=== PATIENT | female | born 1990 | race Caucasian/White ===

== ENCOUNTER 2016-06-10 05:50 | Inpatient (IN) | payer MEDICAID ==
[2016-06-10 06:12] VITALS: BMI 37.7
[2016-06-10] MEDS ORDERED: cefOXitin IV 2 gm in Dextrose 50 ML IVPB ONE ×2 (06:23→07:05)
--- NOTE | 2016-06-10 06:51 | OBADHP ---
Datetime: 06/10/2016 06:47 Admit Comment, IP Provider: chief complaint-scheduled induction of labor HPI 26 y/o at 39 wga here for scheduled section.Patient denies nausea, vomiting, hea dache, chest pain, shortness of breath, numbness or tingling in hands and feet course complicated by gestational diabetes-diet controlled PMH denies PSH csection OBGYN HX ; Csection for nonreasusirng tracing Social hx denies tobacco,alcohol or illicit drug use Exam see exam section A/P 26 y/o at 39 wga here for scheduled repeat csection_ -admit -see orders Pelvic Type - PN: Adequate Extremities - PN: Normal Abdomen - PN: Normal Back - PN: Normal Lungs - PN: Normal Heart - PN: Normal Neurologic - PN: Normal HEENT - PN: Normal General - PN: Normal Contraction Comments Provider: occ Gestation - Est Wks by US: 39.0 IP Hx Assessment: The History has been Reviewed and is Current Vital Signs Provider: Reviewed; Within Normal Limits IP Chief Complaint: Scheduled Section FHR Category Provider Fetus A: Category I Genitourinary Exam: Normal DTRs - PN: Normal EGA AdmitDate IP: 39.0 IP Adm Impression: Term, intrauterine IP Admit Plan: Admit to unit; Initiate Section protocol
[2016-06-10] MEDS ORDERED: Oxytocin 20 units in LR 2,000 ML IV ONE (07:04)
[2016-06-10] MEDS ORDERED: Sodium Citrate/Citric Acid 15 ml Sol ONE (07:04)
[2016-06-10 07:14] LABS: BASO # 0.1 K/uL (0.0-0.2); BASO % 0.7 % (0.0-2.0); EOS # 0.5 K/uL (0.0-0.7); HEMATOCRIT 35.9 % (34.0-47.0); LYMPH % 27.7 % (20.0-40.0); MEAN CELL VOLUME 92.7 fL (81.0-99.0); MEAN CORPUSCULAR HEMOGLOBIN 31.3 pg (27.0-31.0); MEAN CORPUSCULAR HGB CONC 33.8 g/dL (33.0-37.0); MEAN PLATELET VOLUME 8.7 fL (7.2-11.7); MONO # 0.8 K/uL (0.0-0.8); MONO % 7.2 % (0.0-10.0); NRBC % 0.1 % (0.0-2.0); RED CELL DISTRIBUTION WIDTH 12.5 % (11.5-14.5); WHITE BLOOD COUNT 10.7 K/uL (4.8-10.8)
[2016-06-10] MEDS ORDERED: Lactated Ringer's 1,000 ML IV SCH (07:15)
[2016-06-10] MEDS: Sodium Citrate/Citric Acid 15 ml Sol PO ONE (07:23)
[2016-06-10 07:28] LABS: CHLORIDE 100 mmol/L (98-107); POTASSIUM 4.3 mmol/L (3.6-5.2); RBC URINE 2 /hpf (0-3); SODIUM 136 mmol/L (132-148); URINE BACTERIA RARE (<OCC); URINE BILIRUBIN NEGATIVE (NEGATIVE); URINE BLOOD NEGATIVE (NEGATIVE); URINE COLOR Yellow (YELLOW); URINE GLUCOSE (UA) NORMAL (Normal); URINE KETONE NEGATIVE (NEGATIVE); URINE LEUKOCYTE ESTERASE 3+ Leu/uL (Negative); URINE PROTEIN NEGATIVE (NEGATIVE); URINE UROBILINOGEN NORMAL mg/dL (0.2-1.0); WBC URINE 7 /hpf (0-5)
[2016-06-10 07:30] LABS: ALB/GLOB RATIO 1.1 (1.0-2.1); AST/SGOT 29 U/L (14-36); BILIRUBIN,TOTAL 0.2 mg/dL (0.2-1.3); CARBON DIOXIDE 22 mmol/L (22-30); GFR AFRICAN-AMERICAN > 60; TOTAL PROTEIN 6.8 g/dL (6.3-8.3)
[2016-06-10 07:31] LABS: ALKALINE PHOSPHATASE 185 U/L (38-126); ALT/SGPT 29 U/L (9-52); BLOOD UREA NITROGEN 12 mg/dL (7-17); GLUCOSE,RANDOM 71 mg/dL (65-105)
[2016-06-10] MEDS ORDERED: Morphine 1 mg/ml preservative-free Inj(Duramorph) ONE ×2 (07:50)
[2016-06-10] MEDS ORDERED: DiphenhydrAMINE 50 mg/ml Inj IVP PRN (09:14)
--- NOTE | 2016-06-10 10:44 | OBPN ---
Datetime: 06/10/2016 07:36 IP Progress Note Comment: Patient received in LDR#1: (+) AFM, denies LOF, VB, ctx. FOB present H_P reviewed. consent obtained after discussion of possible risks, complications including but not limited to infection, hemorrhage, repair of any damage to internal organs, possible hystere ctomy. Consents signed, dated, witnessed and placed in chart. Assessment: 26 yo P1. 39 weeks, previous C/S, A1 GDM - well controlled - per patient's report of f asting 80s mg/dL and 2-hour post prandials <120s mg/dL. Category 1. Patient last ate 2200 hours. Clin ically stable. Plan: 1) cardiology clinical consultant to O.R. Datetime: 06/10/2016 06:47 Contraction Comments Provider: occ Gestation - Est Wks by US: 39.0 Vital Signs Provider: Reviewed; Within Normal Limits FHR Category Provider Fetus A: Category I
--- NOTE | 2016-06-10 10:57 | PCM.SURG1 ---
Surgeon's Initial Post Op Note - Surgeon's Notes Surgeon: Vesna Segura MD Ophthalmic Photographer: Darrick Branch MD. 2nd Ophthalmic Photographer: Tereza Locke MS-4 Type of Anesthesia: Spinal Anesthesia Administered By: Daniel Corrales MD Pre-Operative Diagnosis: 39 weeks gestation. Previous section. Gestational diabetes mellitus, diet controlled Operative Findings: Live female, LOP, 6lb 11oz; Apgars 9/9. Normal uterus, left ovary adherent posteriorly to uterus, grossly normal. Normal right ovary; and normal fallopian tubes bilaterally. Post-Operative Diagnosis: Same Operation Performed: Repeat transverse lower uterine segment section Specimen/Specimens Removed: none Estimated Blood Loss: EBL {In ML}: 800 (U.O. 700 mL; IVFs 2000 mL LR) Blood Products Given: N/A Drains Used: No Drains Date of Surgery/Procedure: 06/10/16 Time of Surgery/Procedure: 09:25
--- NOTE | 2016-06-10 11:59 | OP ---
PROCEDURE DATE: 06/10/2016 SURGEON: Vesna Segura MD. FRUIT LOADER MACHINE OPERATOR: Darrick Branch MD. SECOND FRUIT LOADER MACHINE OPERATOR: Tereza Locke MS-4. ANESTHESIOLOGIST: Daniel Corrales MD. ANESTHESIA TYPE: Spinal. PREOPERATIVE DIAGNOSES: A 39 weeks' gestation; previous Caesarean section; gestational diabetes mellitus, diet controlled. POSTOPERATIVE DIAGNOSES: A 39 weeks' gestation; previous Caesarean section; gestational diabetes mellitus, diet controlled. OPERATIVE FINDINGS: Live female from the left occiput posterior position , weight 6 pounds 11 ounces, Apgars 9 and 9 at 1 and 5 minutes, respectively. Normal uterus, normal right ovary and normal fallopian tubes bilaterally. The left ovary was adherent posteriorly to the uterus. OPERATION PERFORMED: Repeat transverse lower uterine segment Caesarean section. SPECIMENS: None. ESTIMATED BLOOD LOSS: 800 mL. URINARY OUTPUT: 700 mL of clear urine. INTRAVENOUS FLUIDS: 2000 mL of lactated Ringers. COMPLICATIONS: None. PROCEDURE: The patient was taken to the operating room after having obtained informed consent for the anticipated procedure. This included a discussion of possible risks and complications including but not limited to infection, requiring antibiotics; hemorrhage, requiring blood transfusion; repair of any damage to internal organs; possible Caesarean hysterectomy. Consents were signed, dated, witnessed, and placed. Patient received mefoxin 2 grams intravenously; and an indwelling Tony was inserted using sterile technique. Patient was escorted to the operating room. She was placed on the operating room table in a sitting position where spinal anesthesia was administered without incident. The patient was immediately repositioned into a supine position; heart tones were auscultated at 152 beats per minute. The abdomen was subsequently prepped and she was draped in the usual sterile fashion. After assuring an adequate level of anesthesia, using the first scalpel, an incision was made through the previous Pfannenstiel scar. The incision was carried down through the subcutaneous tissue using the Bovie electrocautery. The fascia was identified. It was nicked in the midline and the incision was extended bilaterally using the Bovie electrocautery. The rectus muscle was dissected off the overlying fascia. Subsequently, the rectus muscle was in the midline using the scalpel. The abdominal cavity was entered via sharp dissection. The vesicouterine reflection was identified and the bladder flap was created. A transverse incision was then made on the lower uterine segment using a second scalpel. Amniotomy was performed and a copious amount of clear fluid was obtained. The infant was delivered in an atraumatic manner, findings as above. Once on the operative field, the ' s mouth and nose were bulb suctioned as the umbilical cord was doubly clamped and cut. The infant was handed off the operative field to the screener and blender in attendance. The placenta was then delivered manually. It was grossly intact with 3 vessels present in the cord. The uterus was exteriorized for closure. This was done in 2 layers using 1-0 Vicryl. The first layer was a running interlocking fashion and the second layer was a horizontal imbricating fashion. Using 0 Biosyn suture, several ruikhu-me-azqih stitches were placed to assure adequate hemostasis. Examination of the pelvic viscera was noted with the findings as above. The bladder flap was then reapproximated using 2-0 chromic in a running fashion. Surgicel was placed along the uterine incision prior to reapproximating the bladder flap. Once the bladder flap was reapproximated, copious irrigation was performed. The uterus was then returned to the abdominal cavity and the paracolic gutters were cleared of all debris. Adequate hemostasis was assured. The parietal peritoneum was then reapproximated using 2-0 chromic in a running fashion and the rectus muscle was reapproximated in midline using 2-0 chromic in a running fashion. The fascia was reapproximated using 1-0 Vicryl in a running fashion. The subcutaneous tissue was reapproximated using plain catgut in a running fashion. The skin was reapproximated using 4-0 Biosyn on a curved needle in a subcuticular stitch. Steri-Strips were applied and a pressure dressing was applied. The patient was then repositioned to a frogleg position. Bimanual massage was performed and the uterus was evacuated of all clots. Uterus contracted and firm at the level of the umbilicus. The patient tolerated the procedure well. She was transferred back to [facility] in stable condition. Baby was also with her, also in stable condition. Dr. Darrick Branch was present throughout the entire procedure from beginning to end. His surgical expertise was necessary for: 1) adequate visualization of the entire operative field; 2) applying appropriate fundal pressure for the safe and effective delivery of the infant; 3) assuring hemostasis throughout the entire procedure. Vesna Segura MD cc: [id number] TT: 06/10/2016 11:59:03 mil KARIMI
[2016-06-10] MEDS ORDERED: Oxycodone/Acetaminophen 5/325 mg Tab PO PRN (19:17)
[2016-06-10] MEDS: Oxycodone/Acetaminophen 5/325 mg Tab PO PRN (20:59)
[2016-06-10] MEDS: Simethicone 80 mg Chewtab PO SCH (21:28)
[2016-06-11] MEDS: Oxycodone/Acetaminophen 5/325 mg Tab PO PRN ×5 (03:30→22:45)
[2016-06-11 06:00] LABS: BASO # 0.1 K/uL (0.0-0.2); BASO % 0.4 % (0.0-2.0); EOS # 0.2 K/uL (0.0-0.7); EOS % 1.3 % (0.0-4.0); HEMATOCRIT 35.6 % (34.0-47.0); LYMPH # 2.6 K/uL (1.0-4.3); LYMPH % 16.1 % (20.0-40.0); MEAN CELL VOLUME 93.1 fL (81.0-99.0); MEAN CORPUSCULAR HEMOGLOBIN 31.7 pg (27.0-31.0); MEAN PLATELET VOLUME 8.3 fL (7.2-11.7); MONO # 0.8 K/uL (0.0-0.8); MONO % 4.8 % (0.0-10.0); RED CELL DISTRIBUTION WIDTH 12.8 % (11.5-14.5); WHITE BLOOD COUNT 16.3 K/uL (4.8-10.8)
--- NOTE | 2016-06-11 07:48 | OBPPN ---
Datetime: 06/11/2016 07:45 PP Pain Prov: Within normal limits PP Nausea Prov: Denies PP Flatus Prov: No PP Abdomen/Uterus Prov: Normal PP Lochia Prov: Normal PP Extremities Prov: Normal PP Comments Phys Exam Prov: fudus below umb ext no edema,no calf ten dressing clean and dry PP Impression Prov: Normal progression PP Plan Prov: Continue present management PP Progress Note Prov: pt was seen at bed side, pain under control,no n/v, tolerating deit,voiding,m in lochia, flatus- pod#1 s/p c/s reg deit cbc cont pain management cont post op care encourage ambulation Vital Signs Provider PP: Reviewed; Within Normal Limits
[2016-06-11] MEDS: Simethicone 80 mg Chewtab PO SCH ×4 (09:29→22:02)
[2016-06-11] MEDS: Prenatal Multivit/Folic Acid/Iron Tab PO SCH (09:30)
[2016-06-12 07:49] VITALS: O2SAT 99
--- NOTE | 2016-06-12 09:19 | OBPPN ---
Datetime: 06/12/2016 09:15 PP Pain Prov: Within normal limits PP Nausea Prov: Denies PP Flatus Prov: Yes PP Abdomen/Uterus Prov: Normal PP Lochia Prov: Normal PP Extremities Prov: Normal PP C/S Incision Prov: Normal PP Comments Phys Exam Prov: fudus below umblicus ext no edema,no calf ten incision clean and dry PP Impression Prov: Normal progression PP Plan Prov: Continue present management PP Progress Note Prov: pt was seen at bed side, pain under control,no n/v, tolerating deit,voiding,m in lochia, flatus+ pod#2s/p c/s cont post op care encourage ambulation cont pain management Vital Signs Provider PP: Reviewed; Within Normal Limits
[2016-06-12] MEDS: Simethicone 80 mg Chewtab PO SCH ×4 (09:30→22:04)
[2016-06-12] MEDS: Prenatal Multivit/Folic Acid/Iron Tab PO SCH (09:31)
[2016-06-12] MEDS: Oxycodone/Acetaminophen 5/325 mg Tab PO PRN ×2 (16:14→22:05)
[2016-06-13 08:46] VITALS: BP 123/84; PULSE 83; RESP 99; TEMP 98
[2016-06-13] MEDS: Oxycodone/Acetaminophen 5/325 mg Tab PO PRN (09:00)
[2016-06-13] MEDS: Simethicone 80 mg Chewtab PO SCH (09:01)
[2016-06-13] MEDS: Prenatal Multivit/Folic Acid/Iron Tab PO SCH (09:02)
--- NOTE | 2016-06-13 11:21 | CP.PCM.DIS ---
<SarahGeoffravi - Last Filed: 06/13/16 11:18> Provider - Provider Date of Admission: 06/10/16 05:50 Attending physician: Salinas Dinero MD Consults: Dr. Arvind Parks (Anesthesiologist) Time Spent in preparation of Discharge (in minutes): 35 Diagnosis - Discharge Diagnosis (1) Status post repeat low transverse section Status: Resolved Hospital Course - Lab Results Lab Results: Most Recent Lab Values WBC 16.3 K/uL (4.8-10.8) H D 06/11/16 05:53 RBC 3.82 Mil/uL (3.80-5.20) 06/11/16 05:53 Hgb 12.1 g/dL (11.0-16.0) 06/11/16 05:53 Hct 35.6 % (34.0-47.0) 06/11/16 05:53 MCV 93.1 fL (81.0-99.0) 06/11/16 05:53 MCH 31.7 pg (27.0-31.0) H 06/11/16 05:53 MCHC 34.0 g/dL (33.0-37.0) 06/11/16 05:53 RDW 12.8 % (11.5-14.5) 06/11/16 05:53 Plt Count 240 K/uL (130-400) 06/11/16 05:53 MPV 8.3 fL (7.2-11.7) 06/11/16 05:53 Neut % (Auto) 77.4 % (50.0-75.0) H 06/11/16 05:53 Lymph % (Auto) 16.1 % (20.0-40.0) L 06/11/16 05:53 Travis % (Auto) 4.8 % (0.0-10.0) 06/11/16 05:53 Eos % (Auto) 1.3 % (0.0-4.0) 06/11/16 05:53 Baso % (Auto) 0.4 % (0.0-2.0) 06/11/16 05:53 Neut # 12.6 K/uL (1.8-7.0) H 06/11/16 05:53 Lymph # 2.6 K/uL (1.0-4.3) 06/11/16 05:53 Travis # 0.8 K/uL (0.0-0.8) 06/11/16 05:53 Eos # 0.2 K/uL (0.0-0.7) 06/11/16 05:53 Baso # 0.1 K/uL (0.0-0.2) 06/11/16 05:53 Sodium 136 mmol/L (132-148) 06/10/16 07:07 Potassium 4.3 mmol/L (3.6-5.2) 06/10/16 07:07 Chloride 100 mmol/L (98-107) 06/10/16 07:07 Carbon Dioxide 22 mmol/L (22-30) 06/10/16 07:07 Anion Gap 19 (10-20) 06/10/16 07:07 BUN 12 mg/dL (7-17) 06/10/16 07:07 Creatinine 0.7 MG/DL (0.7-1.2) 06/10/16 07:07 Est GFR ( Amer) > 60 06/10/16 07:07 Est GFR (Non-Af Amer) > 60 06/10/16 07:07 Random Glucose 71 mg/dL (65-105) 06/10/16 07:07 Calcium 9.0 mg/dl (8.6-10.4) 06/10/16 07:07 Total Bilirubin 0.2 mg/dL (0.2-1.3) 06/10/16 07:07 AST 29 U/L (14-36) 06/10/16 07:07 ALT 29 U/L (9-52) 06/10/16 07:07 Alkaline Phosphatase 185 U/L (38-126) H 06/10/16 07:07 Total Protein 6.8 g/dL (6.3-8.3) 06/10/16 07:07 Albumin 3.5 g/dL (3.5-5.0) 06/10/16 07:07 Globulin 3.3 gm/dL (2.2-3.9) 06/10/16 07:07 Albumin/Globulin Ratio 1.1 (1.0-2.1) 06/10/16 07:07 Urine Color Yellow (YELLOW) 06/10/16 07:07 Urine Clarity Hazy (Clear) 06/10/16 07:07 Urine pH 6.0 (5.0-8.0) 06/10/16 07:07 Ur Specific [place] 1.016 (1.003-1.030) 06/10/16 07:07 Urine Protein Negative mg/dL (NEGATIVE) 06/10/16 07:07 Urine Glucose (UA) Normal mg/dL (Normal) 06/10/16 07:07 Urine Ketones Negative mg/dL (NEGATIVE) 06/10/16 07:07 Urine Blood Negative (NEGATIVE) 06/10/16 07:07 Urine Nitrate Negative (NEGATIVE) 06/10/16 07:07 Urine Bilirubin Negative (NEGATIVE) 06/10/16 07:07 Urine Urobilinogen Normal mg/dL (0.2-1.0) 06/10/16 07:07 Ur Leukocyte Esterase 3+ Andrew/uL (Negative) H 06/10/16 07:07 Urine WBC (Auto) 7 /hpf (0-5) H 06/10/16 07:07 Urine RBC (Auto) 2 /hpf (0-3) 06/10/16 07:07 Ur Squamous Epith Cells 8 /hpf (0-5) H 06/10/16 07:07 Urine Bacteria Rare (<OCC) 06/10/16 07:07 RPR Nonreactive (NONREACTIVE) 06/10/16 07:07 Blood Type A POSITIVE 06/10/16 07:07 Antibody Screen Negative 06/10/16 07:07 - Hospital Course Hospital Course: On admission: 26 year old patient at 39 wga presents for scheduled repeat section on 06/10/16. Patient had no acute complaints at the time; denying chest pain, shortness of breath, or paresthesias. course complicated by gestational diabetes- however diet controlled. Hospital Course: Patient delivered via on day of admission. Patient's pain was controlled and monitored clinically. Patient was able to tolerate a diet; void and had minimal lochia throughout course post delivery. Patient to follow up outpatient in clinic on Monday, June 21. Discharge instructions explained to patient. This is a brief summary of events. For a complete course, refer to the medical record. Discharge Exam - Head Exam Head Exam: ATRAUMATIC, NORMAL INSPECTION, NORMOCEPHALIC - Eye Exam Eye Exam: EOMI, Normal appearance, PERRL Pupil Exam: NORMAL ACCOMODATION, PERRL - ENT Exam ENT Exam: Mucous Membranes Moist - Neck Exam Neck exam: Full Rom - Respiratory Exam Respiratory Exam: NORMAL BREATHING PATTERN. absent: Wheezes - Cardiovascular Exam Cardiovascular Exam: +S1, +S2 - GI/Abdominal Exam GI & Abdominal Exam: Distended, Normal Bowel Sounds, Tenderness (at fundus). absent: Guarding Additional comments: fundal height 2 fingerbreaths below umbilicus - Extremities Exam Extremities exam: full ROM, normal capillary refill, pedal pulses present - Back Exam Back exam: FULL ROM - Neurological Exam Neurological exam: Alert, CN II-XII Intact, Oriented x3 - Psychiatric Exam Psychiatric exam: Normal Affect, Normal Mood - Skin Skin Exam: Normal Color, Warm Discharge Plan - Discharge Medications Prescriptions: Ibuprofen [Motrin Tab] 600 mg PO Q6H PRN #8 tab PRN Reason: Pain, Moderate (4-7) oxyCODONE/Acetaminophen [Percocet 5/325 mg Tab] 1 tab PO Q6H PRN #8 tab PRN Reason: Pain, Moderate (4-7) - Follow Up Plan Condition: GOOD Disposition: HOME/ ROUTINE Instructions: Section (DC), Caring for Your Baby (DC), Jaundice in Newborns (DC) Additional Instructions: Patient is discharged home. Patient should follow up with clinic appointment on Monday, June 21, 2016. Patient will be discharged home with Motrin and Percocet. Patient may take one type of medication every 6 hours for relief. Instructions: Motrin 600 mg, take one by mouth every six hours (only as needed) for pain relief as well as Percocet 5-325; take one by mouth every six hours ( only as needed) for pain relief. If symptoms return, please go to the emergency room. Instructions have been explained to the patient who is aware. Referrals: [facility] [Outside] <Vesna Segura - Last Filed: 06/13/16 12:17> Provider - Provider Date of Admission: 06/10/16 05:50 Attending physician: Salinas Dinero MD Hospital Course - Lab Results Lab Results: Most Recent Lab Values WBC 16.3 K/uL (4.8-10.8) H D 06/11/16 05:53 RBC 3.82 Mil/uL (3.80-5.20) 06/11/16 05:53 Hgb 12.1 g/dL (11.0-16.0) 06/11/16 05:53 Hct 35.6 % (34.0-47.0) 06/11/16 05:53 MCV 93.1 fL (81.0-99.0) 06/11/16 05:53 MCH 31.7 pg (27.0-31.0) H 06/11/16 05:53 MCHC 34.0 g/dL (33.0-37.0) 06/11/16 05:53 RDW 12.8 % (11.5-14.5) 06/11/16 05:53 Plt Count 240 K/uL (130-400) 06/11/16 05:53 MPV 8.3 fL (7.2-11.7) 06/11/16 05:53 Neut % (Auto) 77.4 % (50.0-75.0) H 06/11/16 05:53 Lymph % (Auto) 16.1 % (20.0-40.0) L 06/11/16 05:53 Travis % (Auto) 4.8 % (0.0-10.0) 06/11/16 05:53 Eos % (Auto) 1.3 % (0.0-4.0) 06/11/16 05:53 Baso % (Auto) 0.4 % (0.0-2.0) 06/11/16 05:53 Neut # 12.6 K/uL (1.8-7.0) H 06/11/16 05:53 Lymph # 2.6 K/uL (1.0-4.3) 06/11/16 05:53 Travis # 0.8 K/uL (0.0-0.8) 06/11/16 05:53 Eos # 0.2 K/uL (0.0-0.7) 06/11/16 05:53 Baso # 0.1 K/uL (0.0-0.2) 06/11/16 05:53 Sodium 136 mmol/L (132-148) 06/10/16 07:07 Potassium 4.3 mmol/L (3.6-5.2) 06/10/16 07:07 Chloride 100 mmol/L (98-107) 06/10/16 07:07 Carbon Dioxide 22 mmol/L (22-30) 06/10/16 07:07 Anion Gap 19 (10-20) 06/10/16 07:07 BUN 12 mg/dL (7-17) 06/10/16 07:07 Creatinine 0.7 MG/DL (0.7-1.2) 06/10/16 07:07 Est GFR ( Amer) > 60 06/10/16 07:07 Est GFR (Non-Af Amer) > 60 06/10/16 07:07 Random Glucose 71 mg/dL (65-105) 06/10/16 07:07 Calcium 9.0 mg/dl (8.6-10.4) 06/10/16 07:07 Total Bilirubin 0.2 mg/dL (0.2-1.3) 06/10/16 07:07 AST 29 U/L (14-36) 06/10/16 07:07 ALT 29 U/L (9-52) 06/10/16 07:07 Alkaline Phosphatase 185 U/L (38-126) H 06/10/16 07:07 Total Protein 6.8 g/dL (6.3-8.3) 06/10/16 07:07 Albumin 3.5 g/dL (3.5-5.0) 06/10/16 07:07 Globulin 3.3 gm/dL (2.2-3.9) 06/10/16 07:07 Albumin/Globulin Ratio 1.1 (1.0-2.1) 06/10/16 07:07 Urine Color Yellow (YELLOW) 06/10/16 07:07 Urine Clarity Hazy (Clear) 06/10/16 07:07 Urine pH 6.0 (5.0-8.0) 06/10/16 07:07 Ur Specific [place] 1.016 (1.003-1.030) 06/10/16 07:07 Urine Protein Negative mg/dL (NEGATIVE) 06/10/16 07:07 Urine Glucose (UA) Normal mg/dL (Normal) 06/10/16 07:07 Urine Ketones Negative mg/dL (NEGATIVE) 06/10/16 07:07 Urine Blood Negative (NEGATIVE) 06/10/16 07:07 Urine Nitrate Negative (NEGATIVE) 06/10/16 07:07 Urine Bilirubin Negative (NEGATIVE) 06/10/16 07:07 Urine Urobilinogen Normal mg/dL (0.2-1.0) 06/10/16 07:07 Ur Leukocyte Esterase 3+ Andrew/uL (Negative) H 06/10/16 07:07 Urine WBC (Auto) 7 /hpf (0-5) H 06/10/16 07:07 Urine RBC (Auto) 2 /hpf (0-3) 06/10/16 07:07 Ur Squamous Epith Cells 8 /hpf (0-5) H 06/10/16 07:07 Urine Bacteria Rare (<OCC) 06/10/16 07:07 RPR Nonreactive (NONREACTIVE) 06/10/16 07:07 Blood Type A POSITIVE 06/10/16 07:07 Antibody Screen Negative 06/10/16 07:07 Attending/Attestation - Attestation I have personally seen and examined this patient.: Yes I have fully participated in the care of the patient.: Yes I have reviewed all pertinent clinical information, including history, physical exam and plan: Yes Notes (Text): 06/13/16 12:15 Patient seen and evaluated with resident during morning rounds - I agree with the above documentation; with the addition of patient is contemplating using the patch for contraception
--- NOTE | 2016-06-13 12:48 | OBDCSUM ---
Datetime: 06/13/2016 08:06 Discharged to, Provider: Home Follow up at, Provider: [place] Instr Activity: Normal activity Disch Instr Diet: Regular Discharge Instructions, Provider: Routine instructions given Discharge Diagnosis, Provider: Term Delivered Discharge Time: 06/13/2016 11:00 Follow up in weeks, Provider: 06-21-16 Disch Referrals: None Contraception discussed, Prov: Yes Disch Activity Restrictions: No lifting; Minimize stair-climbing; No sexual activity; Nothing in vag shiela - [place], tampons, douche Discharge Diagnosis Prov Other: Status post repeat section Gestational diabetes mellitus Contraception after Delivery: Control Pill/Patch
--- NOTE | 2016-06-13 12:48 | OBPPN ---
Datetime: 06/13/2016 12:19 PP Pain Prov: Within normal limits PP Nausea Prov: Denies PP Flatus Prov: Yes PP BM Prov: Yes PP Breasts Prov: Not Done PP Heart Prov: Normal PP Lungs Prov: Normal PP Abdomen/Uterus Prov: Normal PP Lochia Prov: Normal PP Vulva/Perineum Prov: Not Done PP CVA Tenderness Prov: Normal PP Extremities Prov: Normal PP C/S Incision Prov: Normal PP Progress Prov: Not Applicable PP Comments Phys Exam Prov: Skin: warm, dry, intact HEENT: full ROM Lungs: CTA bilaterally Cardiac: RRR, normal S1, S2 Abdomen: Obese. Soft. Non distended. (+) BS. Fundus firm, mobile, minimal tender, 2 FB below umbil icus. Mild lochia rubra. Incision with subcuticular closure - clean, dry and intact. Extremities: no calf tendernes, cyanosis or edema All other systems reviewed and are negative PP Impression Prov: Normal progression PP Plan Prov: Discharge PP Progress Note Prov: Patient seen and evaluated approximately 0735 hours: received sitting up in b ed in room 460 in very good spirits. Not . Denies dizziness, lightheadedness, chest pain , shortness of breath or palpitations. P.E.: as above. Obese in NAD. Awake, alert, oriented to time person and place. Pleasant and malia ative - POD #1 H/H Assessment: POD#3, 26 y.o. P2, S/P repeat LTCS. Afebrile, vital signs stable. Returning GI and functions; ambulating without difficulty. Desires to use the patch for contraception. Clinically stab le. Plan: 1) discharge home 2) See full discharge instructions (Annotations: Data stored by CPN on behalf of user) Vital Signs Provider PP: Reviewed
--- NOTE | 2016-06-20 18:33 | OBDS ---
DELIVERY PERSONNEL Delivery Doctor: Jonathan Segura MD Scrub Nurse: Abbey Darden OBT Diesel Mechanic Farm: Daniele Overton RN Anesthesiologist: SOHAIL MATERNAL INFORMATION Delivery Anesthesia: Spinal Medications in Delivery: PITOCIN 20 Estimated Blood Loss (ml): 700 Placenta Cultured: No Maternal Complications: None RN Comments: living baby girl apg 9-9 Provider Comments: Uncomplicated repeat LTCS with atraumatic delivery of live female ; Apgars 9/9; weight 6lb 11oz. LABOR SUMMARY EDC: 06/17/2016 00:00 No. Babies in Womb: 1 Attempted: No Labor Anesthesia: None LABOR INFORMATION Oxytocin: N/A Group B Beta Strep: Negative Antibiotics # of Doses: 1 Antibiotics Time of Last Dose: 7:30 Steroids Given: None Reason Steroids Not Administered: Not Applicable MEMBRANES Membranes Rupture Method: Artificial Rupture of Membranes: 06/10/2016 08:18 Length of Rupture (hrs): 0.00 Amniotic Fluid Color: Clear Amniotic Fluid Amount: Moderate Amniotic Fluid Odor: Normal STAGES OF LABOR Stage 3 hrs: 0 Stage 3 min: 1 VAGINAL DELIVERY Episiotomy: None Laceration Extension: N/A Laceration Type: None CSECTION DELIVERY Primary Indication: Repeat Elective Secondary Indication: N/A CSection Urgency: N/A CSection Incidence: Repeat Labor: N/A Elective: Elective CSection Incision: Lower Uterine Transverse BABY A INFORMATION Delivery Date/Time: 06/10/2016 08:18 Method of Delivery: Born in Route : No : N/A Forceps: N/A Vacuum Extraction: N/A Shoulder Dystocia : No SHOULDER DYSTOCIA BABY A Delivery Date/Time: 06/10/2016 08:18 PRESENTATION/POSITION BABY A Presentation: Cephalic Cephalic Presentation: Vertex Vertex Position: Left Occipital Posterior Breech Presentation: N/A PLACENTA INFORMATION BABY A Placenta Delivery Time : 06/10/2016 08:19 Placenta Method of Delivery: Manual Removal Placenta Status: Delivered SCORES BABY A Heart Rate 1 min: >100 bpm Resp Effort 1 min: Good Cry Reflex Irritability 1 min: Cough or Sneeze or Pulls Away Muscle Tone 1 min: Active Motion Color 1 min: Body [place], Extremities Blue Resuscitation Effort 1 min: Tactile Stimulation SCORE 1 MIN: 9 Heart Rate 5 min: >100 bpm Resp Effort 5 min: Good Cry Reflex Irritability 5 min: Cough or Sneeze or Pulls Away Muscle Tone 5 min: Active Motion Color 5 min: Body [place], Extremities Blue SCORE 5 MIN: 9 INFANT INFORMATION BABY A Gestational Age at Delivery: 39.0 Gestational Status: Term Outcome : Liveborn Condition : Stable Sex: Female IDENTIFICATION/MEDS BABY A ID Band Number: [id number] ID Band Location: Left Leg; Left Arm Sensor Applied: Yes Sensor Number: [id number] Sensor Location : Cord Clamp Vitamin K Given : Not Given Erythromycin Given: Not Given WEIGHT/LENGTH BABY A Birthweight (gms): 3035 Infant Weight (lb): 6 Infant Weight (oz): 11 Infant Length Inches: 18.75 Infant Length cms: 47.6 CORD INFORMATION BABY A No. Cord Vessels: 3 Nuchal Cord : N/A Cord Blood Taken: Yes Infant Suction: Mouth; Nose ASSESSMENT BABY A Infant Complications: None Physical Findings at Delivery: Within Normal Limits Infant Respirations: Appears Normal [place] U[place]/ALS Called : No Care By: KATE Transferred To: Remains with Mother
== END 2016-06-13 12:35 | disposition home or self-care (01) | DRG 651 ==
LOC: C.4D 05:50 → C.4M 11:30
PROVIDERS: ADMIT Student in an Organized Health Care Education/Training Program; ATTEND Student in an Organized Health Care Education/Training Program
PROC: 10D00Z1 Extraction of Products of Conception, Low, Open Approach (ICD-10-PCS; principal; 2016-06-10)
DX: O24.420 Gestational diabetes mellitus in childbirth, diet controlled (principal); O99.214 Obesity complicating childbirth; O34.211 Maternal care for low transverse scar from previous cesarean delivery; Z3A.39 39 weeks gestation of pregnancy; Z68.37 Body mass index [BMI] 37.0-37.9, adult; Z37.0 Single live birth